=== PATIENT | female | born 1955 | race Caucasian/White ===

== ENCOUNTER → 2019-05-04 | Outpatient (CLI) | payer OTHER, SELFPAY ==
[2019-04-19 12:38] VITALS: BMI 58.1
--- NOTE | 2019-05-04 14:49 | PFTCOMP_ITS ---
COMPLETE PULMONARY FUNCTION TEST INTERPRETATION Brief HPI: Patient is a 63 year old female, currently under the care of Dr. Simpson, who presents to [facility] for complete pulmonary function tests secondary to diagnosis of dyspnea. Respiratory therapist reports good effort and reproducible results. Interpretation: Forced expiration spirometry shows a moderate large airways obstructive ventilatory defect with an FEV1 of 67% predicted. There is no significant bronchodilator response by strict ATS criteria. Spirograms are of good quality and plateau slowly, indicating slowly emptying areas of the lungs. The respiratory flow volume loop shows decreased expiratory flow rates at high lung volumes consistent with small airways obstruction. Lung volumes by body plethysmography show a slightly decreased total lung capacity at 3.81 L, 81% predicted. All other lung volumes are within normal limits. Diffusion capacity by carbon monoxide is decreased at 61% predicted. The airway resistance is normal. No previous pulmonary function tests were available for review. Impression: Moderate mixed ventilatory defect with a symmetric reduction diffusion capacity
== END | disposition home or self-care (01) ==
LOC: PSN 10:33
PROVIDERS: PCP Nurse Practitioner Family; Referring Provider Internal Medicine Critical Care Medicine; Visit Provider Internal Medicine Critical Care Medicine
DX: J44.9 Chronic obstructive pulmonary disease, unspecified (principal)
CPT/HCPCS: 94060; 94726; 94729

== ENCOUNTER → 2019-05-07 | Outpatient (CLI) | payer OTHER, SELFPAY ==
[2019-04-19 12:38] VITALS: BMI 58.1
[2019-05-07 12:38] VITALS: PULSE 100; PULSE 101; PULSE 104; PULSE 106; PULSE 107; PULSE 111; PULSE 85; PULSE 87; O2SAT 87; O2SAT 88; O2SAT 91; O2SAT 92; O2SAT 94; O2SAT 96
--- NOTE | 2019-05-07 12:46 | CPS ---
Patient states she wears 2 lpm O2 at night and also has a tank and portable concentrator for day use. Started testing on room air, SpO2 92%. By the 1st minute SpO2 87%, placed patient on 2 lpm nasal cannula. At the 4th minute patient SpO2 88% and patient stated this was when she was the most short of breath during the entire test. Turned O2 up to 3 lpm, after patient recovered for a very brief time she stated she was ready to finish testing. SpO2 92% at end of testing and patient stated she was only moderately short of breath at that time.
--- NOTE | 2019-05-08 05:28 | PCM.PSN.6M ---
PSN 6 Minute Walk Test - 6 Minute Walk Test 6 Minute Walk Test: 6 Minute Walk Test PSN:6-Minute Walk Test Start: 05/07/19 12:38 Freq: Status: Active Protocol: [id number] Document 05/07/19 12:38 MARIAH (Rec: 05/07/19 12:50 MARIAH [id number]) 6 Minute Walk Test Date Performed 05/07/19 Time Performed 12:30 Height 5 ft 3 in Weight: 127.006 kg Weight in Pounds 280.[address]: Jeevan Simpson Assistive device used: None Pre-test Oxygen Delivery Method Room Air Pulse Ox (%) 92 Pulse Rate (60-100 beats/min) 85 Dyspnea Jessy Scale (0-10) 0 Exertion Jessy Scale (6-20) 6 1st minute Oxygen Delivery Method Room Air Pulse Ox (%) 87 Pulse Rate (60-100 beats/min) 100 2nd minute Oxygen Flow Rate (L/min) (L/min) 2 Oxygen Delivery Method Nasal Cannula Pulse Ox (%) 94 Pulse Rate (60-100 beats/min) 101 H 3rd minute Oxygen Flow Rate (L/min) (L/min) 2 Oxygen Delivery Method Nasal Cannula Pulse Ox (%) 91 Pulse Rate (60-100 beats/min) 104 H 4th minute Oxygen Flow Rate (L/min) (L/min) 2 Oxygen Delivery Method Nasal Cannula Pulse Ox (%) 88 Pulse Rate (60-100 beats/min) 106 H Dyspnea Jessy Scale (0-10) 4 5th minute Oxygen Flow Rate (L/min) (L/min) 3 Oxygen Delivery Method Nasal Cannula Pulse Ox (%) 94 Pulse Rate (60-100 beats/min) 107 H 6th minute Oxygen Flow Rate (L/min) (L/min) 3 Oxygen Delivery Method Nasal Cannula Pulse Ox (%) 92 Pulse Rate (60-100 beats/min) 111 H Dyspnea Jessy Scale (0-10) 3 Exertion Jessy Scale (6-20) 14 Post-test Oxygen Flow Rate (L/min) (L/min) 3 Oxygen Delivery Method Nasal Cannula Pulse Ox (%) 96 Pulse Rate (60-100 beats/min) 87 Full Laps Walked 18 Partial Lap, Number of Tiles Walked 20 Total Distance Walked (ft) 1082 05/07/19 12:46 Cardiopulmonary Services by Helen Bruno Patient states she wears 2 lpm O2 at night and also has a tank and portable concentrator for day use. Started testing on room air, SpO2 92%. By the 1st minute SpO2 87%, placed patient on 2 lpm nasal cannula. At the 4th minute patient SpO2 88% and patient stated this was when she was the most short of breath during the entire test. Turned O2 up to 3 lpm, after patient recovered for a very brief time she stated she was ready to finish testing. SpO2 92% at end of testing and patient stated she was only moderately short of breath at that time. Initialized on 05/07/19 12:46 - END OF NOTE - Interpretation Interpretation: The patient was known to be 92% on room air at rest. The patient did desaturate to 87% in the first minute of ambulation. In total, patient required 3 L nasal cannula to maintain appropriate saturations. Patient did have some elevated heart rate in response to desaturation, which is an appropriate response. These findings are consistent with a respiratory limitation exercise tolerance. - Recommendations Recommendations: No supplemental oxygen is indicated at rest, but patient should be using 3 L with any ambulation.
== END | disposition home or self-care (01) ==
LOC: PSN 12:08
PROVIDERS: PCP Nurse Practitioner Family; Referring Provider Internal Medicine Critical Care Medicine; Visit Provider Internal Medicine Critical Care Medicine
DX: J44.9 Chronic obstructive pulmonary disease, unspecified (principal)
CPT/HCPCS: 94618

== ENCOUNTER → 2019-09-08 | Outpatient (CLI) | payer OTHER, SELFPAY ==
[2019-05-25 08:33] VITALS: BMI 58.1
--- NOTE | 2019-09-08 13:35 | CT_ITS ---
STUDY: LOW DOSE CT LUNG CANCER SCREENING REASON FOR EXAM: Female, 64 years old. Smokes three quarters of a pack for 10 years. Quit 2 years ago. RADIATION DOSAGE (If Supplied By Facility): CTDIvol = ( 4.02 ) mGy, DLP = ( 136.42 ) mGycm TECHNIQUE: No contrast was administered. Low dose technique was utilized (average mAS-38 and kVp 120). 1.25 mm axial source images with a slice interval of 1.25-mm were reconstructed in lung windows. 2.5 mm axial source images with a slice interval of 2.5-mm were reconstructed in lung windows. 5.0 mm axial source images with a slice interval of 5.0-mm were reconstructed in soft tissue windows. Nodule measured using lung windows on PACS and/or independent workstation with automated measurement of minimum and maximum diameter. Nodule measurement reported as average diameter rounded to the nearest whole number. Growth is defined as an increase ins size of greater than 1.5 mm. COMPARISON: None. NODULES: Total lung nodules (excluding granulomas): 0 Emphysema: No Endobronchial lesion: No Aorta: Atherosclerotic changes without aneurysm. Coronary arteries: Minimal coronary artery calcifications. Heart: Normal in size Pulmonary artery: Normal Mediastinal nodes: There is a calcified azygos lymph node. There are calcified subcarinal lymph nodes. Calcified nodes are seen in the right hilum. Other chest and abdominal findings: Minimal degenerative changes of the thoracic spine. CT/Low Dose CT Lung Screening IMPRESSION: Lung-RADS category 1 - Continue annual screening with LDCT in 12 months. IMPORTANT NOTES FOR USE: ACR Lung-RADS Version 1.0 Assessment Categories Release Date: June 14, 2013 Category: Coded 0-4 bases on nodule(s) with highest degree of suspicion. Negative screen is defined as categories 1 and 2; a positive screen is defined as categories 3 and 4. Category 3 and 4A nodules that are unchanged on interval CT should be coded as category 2, and individuals returned to screening in 12 months. Category 4X: Category 3 or 4 nodules with additional imaging findings that increase the suspicion of lung cancer, such as spiculation, GGN that doubles in size in 1 year, enlarged lymph notes, etc. Category Modifiers: S (significant finding unrelated to lung cancer) and C (prior history of treated lung cancer) may be added to the 0-4 Lung-RADS Electronically Signed: Win Mao DO at 17:58 EDT Tel [phone], Service support ,
== END | disposition home or self-care (01) ==
LOC: CT 13:35
PROVIDERS: PCP Nurse Practitioner Family; Referring Provider Internal Medicine Critical Care Medicine; Visit Provider Internal Medicine Critical Care Medicine
DX: F17.211 Nicotine dependence, cigarettes, in remission (principal); Z12.2 Encounter for screening for malignant neoplasm of respiratory organs
CPT/HCPCS: G0297

== ENCOUNTER → 2020-09-22 15:49 | Outpatient (CLI) | payer OTHER, SELFPAY ==
[2020-07-12 08:14] VITALS: BMI 59.3
--- NOTE | 2020-09-22 15:52 | CT_ITS ---
EXAM: CT CHEST, LUNG CANCER SCREENING WITHOUT INTRAVENOUS CONTRAST : 1955 CLINICAL INDICATION: h/o Tobacco Dependency TECHNIQUE: Helically acquired images were obtained of the chest without intravenous contrast using low dose (LDCT) lung cancer screening protocol. This CT exam was performed using one or more of the following dose reduction techniques: automated exposure control, adjustment of the mA and/or kV according to patient size, and/or use of iterative reconstruction technique. This report was created using [employer] report generation technology. COMPARISON: 09/08/2019 FINDINGS: LUNGS AND PLEURAL SPACES: There is a calcified granuloma in the right middle lobe which is stable. No mass. No pleural effusion or thickening. No pneumothorax. HEART: Unremarkable. Heart size is normal. No pericardial effusion. MEDIASTINUM: Unremarkable. No mediastinal or hilar adenopathy. Esophagus is unremarkable. No hiatal hernia. THYROID: Unremarkable. No thyroid lesions. BONES/JOINTS: Unremarkable. No suspicious lytic or blastic abnormality. VASCULATURE: Unremarkable. Thoracic aorta is non-dilated. LYMPH NODES: Unremarkable. No enlarged lymph nodes. CT/Low Dose CT Lung Screening IMPRESSION: No evidence malignancy. There has been no change in the reference examination. Lung RADS category 1 Individualized dose optimization techniques were used for this CT. at 1736 Reported and signed by: Quinn Hermosillo MD Electronically Signed: Quinn Hermosillo MD at 17:35 EDT Tel , Service support ,
== END ==
PROVIDERS: PCP Nurse Practitioner Family; Referring Provider Internal Medicine Critical Care Medicine; Visit Provider Internal Medicine Critical Care Medicine
DX: F17.211 Nicotine dependence, cigarettes, in remission (principal)
CPT/HCPCS: 71271

== ENCOUNTER → 2021-09-24 | Outpatient (CLI) | payer MEDICARE, SELFPAY ==
--- NOTE | 2021-09-24 13:00 | CT_ITS ---
STUDY: LOW DOSE CT LUNG CANCER SCREENING REASON FOR EXAM: Female, 66 years old. Former smoker. 40 pack-year history. Quit 4 years ago. RADIATION DOSAGE (If Supplied By Facility): CTDIvol = ( 3.18 ) mGy, DLP = ( 100.06 ) mGycm TECHNIQUE: No contrast was administered. Low dose technique was utilized (average mAS-38 and kVp 120). 1.25 mm axial source images with a slice interval of 1.25-mm were reconstructed in lung windows. 2.5 mm axial source images with a slice interval of 2.5-mm were reconstructed in lung windows. 5.0 mm axial source images with a slice interval of 5.0-mm were reconstructed in soft tissue windows. COMPARISON: 09/22/2020 NODULES: Total lung nodules (excluding granulomas): 0 Again seen is a small calcified granuloma in the medial right middle lobe (image 134 series 4. This is unchanged from previous examination Emphysema: No Endobronchial lesion: No Aorta: Minimal atherosclerotic changes without aneurysm. CORONARY ARTERIES: Minimal coronary artery calcification Heart: Normal Pulmonary artery: Minimal atherosclerotic calcifications. Mediastinal nodes: Calcified mediastinal and hilar lymphadenopathy. Other chest and abdominal findings: Degenerative changes of the thoracic spine. CT/Low Dose CT Lung Screening IMPRESSION: Lung-RADS category 1 - Continue annual screening with LDCT in 12 months. IMPORTANT NOTES FOR USE: ACR Lung-RADS Version 1.1 Assessment Categories Release Date: 2018 Category: Coded 0-4 bases on nodule(s) with highest degree of suspicion. Negative screen is defined as categories 1 and 2; a positive screen is defined as categories 3 and 4. Category 3 and 4A nodules that are unchanged on interval CT should be coded as category 2, and individuals returned to screening in 12 months. Category 4X: Category 3 or 4 nodules with additional imaging findings that increase the suspicion of lung cancer, such as spiculation, GGN that doubles in size in 1 year, enlarged lymph notes, etc. Category Modifiers: S (significant finding unrelated to lung cancer) Electronically Signed: Win Mao DO at 23:52 EDT Reading Location ID and State: [facility] / [place] Tel [phone], Service support ,
== END | disposition home or self-care (01) ==
LOC: CT 12:59
PROVIDERS: PCP Nurse Practitioner Family; Referring Provider Nurse Practitioner Acute Care; Visit Provider Nurse Practitioner Acute Care
DX: Z87.891 Personal history of nicotine dependence (principal)
CPT/HCPCS: 71271

== ENCOUNTER → 2022-10-03 | Outpatient (CLI) | payer MEDICARE, SELFPAY ==
--- NOTE | 2022-10-03 13:46 | CT_ITS ---
INDICATION: h/o tobacco dependency EXAMINATION: - CT Low Dose CT Chest for Lung Cancer Screening A radiation dose optimization technique was used for this scan. COMPARISON: Chest CT 09/24/2021 and 09/08/2019. FINDINGS: Low dose Noncontrast serial CT axial images through the chest with coronal and sagittal reformatted series. MEDIASTINUM: Moderate coronary artery atherosclerotic calcifications. Noncontrast mediastinum is otherwise unremarkable. LUNG PARENCHYMA: No acute pulmonary parenchymal abnormality. Densely calcified medial right middle lobe granuloma. PLEURA: No pleural effusion. No pneumothorax. BONES: Osseous structures are unremarkable for age. UPPER ABDOMEN: Unremarkable. CT/Low Dose CT Lung Screening IMPRESSION: Emphysema, no nodules or focal airspace disease. Lung-RADS CATEGORY 1: Negative. No nodules. Continue annual screening with LDCT in 12 months. Electronically Signed: Solomon Koch MD at 22:39 EDT ,
== END | disposition home or self-care (01) ==
LOC: CT 13:42
PROVIDERS: Referring Provider Internal Medicine Critical Care Medicine; Visit Provider Internal Medicine Critical Care Medicine
DX: F17.211 Nicotine dependence, cigarettes, in remission (principal)
CPT/HCPCS: 71271

== ENCOUNTER → 2022-12-02 | Outpatient (CLI) | payer MEDICARE, SELFPAY | END | disposition home or self-care (01) | LOC: SL 20:09 | PROVIDERS: Referring Provider Nurse Practitioner Acute Care; Visit Provider Nurse Practitioner Acute Care | DX: G47.10 Hypersomnia, unspecified (principal); G47.33 Obstructive sleep apnea (adult) (pediatric) | CPT/HCPCS: 95811 ==

== ENCOUNTER → 2023-04-24 | Outpatient (CLI) | payer MEDICARE, SELFPAY | END | disposition home or self-care (01) | LOC: SL 20:25 | PROVIDERS: PCP Family Medicine; Referring Provider Internal Medicine Critical Care Medicine; Visit Provider Internal Medicine Critical Care Medicine | DX: G47.33 Obstructive sleep apnea (adult) (pediatric) (principal); G47.10 Hypersomnia, unspecified | CPT/HCPCS: 95810 ==

== ENCOUNTER → 2023-06-03 | Outpatient (CLI) | payer MEDICARE, SELFPAY ==
[2023-06-03 13:16] LABS: Allen Test Positive; Base Excess 0 mmol/L (-2 to +2); Bicarbonate 24.6 mmol/L (22-26); Blood Gas Specimen Type ART; Mode Not entered; O2 Delivery Device Room Air; PO2 52 mmHG (75-100); SITE R Radial; SO2 87 % (95-99); Total Carbon Dioxide 26 mmol/L; pCO2 38.1 mmHg (35-45); pH 7.42 (7.35-7.45)
== END | disposition home or self-care (01) ==
PROVIDERS: PCP Family Medicine; Referring Provider Nurse Practitioner Acute Care; Visit Provider Nurse Practitioner Acute Care
DX: J44.1 Chronic obstructive pulmonary disease with (acute) exacerbation (principal)
CPT/HCPCS: 36600; 82803; 94060; 94726; 94729

== ENCOUNTER → 2023-10-07 | Outpatient (CLI) | payer MEDICARE, SELFPAY ==
--- NOTE | 2023-10-07 07:12 | CT_ITS ---
STUDY: LOW DOSE CT LUNG CANCER SCREENING REASON FOR EXAM: Female, 68 years old. Smoker quit 2018. Patient smoked 1 pack per day for more than 25 years. RADIATION DOSAGE (If Supplied By Facility): CTDIvol = ( 4.02 ) mGy, DLP = ( 137.64 ) mGycm TECHNIQUE: No contrast was administered. Low dose technique was utilized (average mAS-38 and kVp 120). 1.25 mm axial source images with a slice interval of 1.25-mm were reconstructed in lung windows. 2.5 mm axial source images with a slice interval of 2.5-mm were reconstructed in lung windows. 5.0 mm axial source images with a slice interval of 5.0-mm were reconstructed in soft tissue windows. COMPARISON: Comparison is made with prior study dated October 03, 2022. NODULES: No suspicious nodules are seen. Emphysema: Minimal scarring at the lung bases. Endobronchial lesion: None Aorta: Atherosclerotic plaque formation of the aortic arch. CORONARY ARTERIES: Coronary artery calcification is seen. Heart: Unremarkable. Pulmonary artery: Unremarkable Mediastinal nodes: Unremarkable Other chest and abdominal findings: CT/Low Dose CT Lung Screening IMPRESSION: Lung-RADS category 2 - Continue annual screening with LDCT in 12 months. IMPORTANT NOTES FOR USE: ACR Lung-RADS Version 1.1 Assessment Categories Release Date: 2018 Category: Coded 0-4 bases on nodule(s) with highest degree of suspicion. Negative screen is defined as categories 1 and 2; a positive screen is defined as categories 3 and 4. Category 3 and 4A nodules that are unchanged on interval CT should be coded as category 2, and individuals returned to screening in 12 months. Category 4X: Category 3 or 4 nodules with additional imaging findings that increase the suspicion of lung cancer, such as spiculation, GGN that doubles in size in 1 year, enlarged lymph notes, etc. Category Modifiers: S (significant finding unrelated to lung cancer) Electronically Signed: Jayosn Yousif MD at 15:57 EDT ,
== END | disposition home or self-care (01) ==
LOC: CT 07:08
PROVIDERS: PCP Physician Assistant; Referring Provider Nurse Practitioner Acute Care; Visit Provider Nurse Practitioner Acute Care
DX: F17.210 Nicotine dependence, cigarettes, uncomplicated (principal)
CPT/HCPCS: 71271

== ENCOUNTER → 2024-01-20 | Outpatient (CLI) | payer MEDICARE, SELFPAY ==
[2024-01-20] MEDS: Zolpidem Tartrate 5 MG Tablet PO (21:30)
== END | disposition home or self-care (01) ==
LOC: SL 19:39
PROVIDERS: PCP Physician Assistant; Referring Provider Nurse Practitioner Acute Care; Visit Provider Nurse Practitioner Acute Care
DX: G47.33 Obstructive sleep apnea (adult) (pediatric) (principal)
CPT/HCPCS: 95811

== ENCOUNTER → 2024-02-17 | Outpatient (CLI) | payer MEDICARE, SELFPAY | END | disposition home or self-care (01) | LOC: SL 11:12 | PROVIDERS: PCP Physician Assistant; Referring Provider Nurse Practitioner Acute Care; Visit Provider Nurse Practitioner Acute Care | DX: Z46.89 Encounter for fitting and adjustment of other specified devices (principal) ==

== ENCOUNTER → 2024-10-11 | Outpatient (CLI) | payer MEDICARE, SELFPAY ==
--- NOTE | 2024-10-11 08:12 | CT_ITS ---
PROCEDURE: LOW DOSE CT LUNG SCREENING 10/11/2024 REASON FOR EXAM: SMOKER QUIT 2018 1 pack per day smoker times 15 years TECHNIQUE: LOW DOSE CT LUNG SCREENING Coronal and Sagittal reconstruction series were provided. One or more dose reduction techniques were used (e.g., Automated exposure control, adjustment of the mA and/or kV according to patient size, use of iterative reconstruction technique). REFERENCE LINK: [employer] Lung-RADS RADIATION DOSE SUMMARY: CTDlvol: 4.02 mGy DLP: 132.9 mGycm COMPARISON: 10/07/2023 FINDINGS: Lung windows show the lungs to be normally expanded. No organized infiltrate, or effusion, no suspicious noncalcified mass or nodule. Limited soft tissue windows show a normal-appearing thyroid gland. No suspicious adenopathy. There are calcified coronary vessels. The thoracic aorta tapers normally. Limited cuts through the upper abdomen do not show a suspicious abnormality. Multiple gallstones noted. Bony structures show degenerative change. CT/Low Dose CT Lung Screening IMPRESSION: No acute pulmonary process, no suspicious noncalcified mass or nodule Coronary artery calcification (CAC) is is present Lung-RADS Category: 1 NEGATIVE. RECOMMEND 12-MONTH SCREENING LDCT. Other Significant Findings: Gallstones Reading Location: [id number]
== END | disposition home or self-care (01) ==
LOC: CT 08:08
PROVIDERS: PCP Physician Assistant; Referring Provider Nurse Practitioner Acute Care; Visit Provider Nurse Practitioner Acute Care
DX: F17.210 Nicotine dependence, cigarettes, uncomplicated (principal)
CPT/HCPCS: 71271